=== PATIENT | male | born 1990 | race Caucasian/White ===

== ENCOUNTER 2018-10-21 22:11 | Emergency (ER) | payer OTHER, SELFPAY ==
[2018-10-21 22:12] VITALS: BP 126/79; PULSE 90; RESP 16; TEMP 37.1; O2SAT 96; BMI 24.3
[2018-10-21 22:41] VITALS: BP 132/98; PULSE 100; RESP 15; O2SAT 98
[2018-10-21] MEDS: 0.9% Normal Saline 1,000 ML 1000 ML IV (23:18)
[2018-10-21] MEDS: MethylPREDNISolone 125 MG/2 ML Vial IV (23:18)
[2018-10-21] MEDS: DiphenhydrAMINE 50 MG/ML Syringe IV (23:18)
--- NOTE | 2018-10-22 00:11 | ED.VISSUMM ---
- ER Visit Summary Date of Service: 10/22/18 Chief Complaint: Rash History of Present Illness: The patient is a 28 M with no primary care physician. He reports that he has hives that began yesterday. He reports the only changes are that he consistently changes laundry detergent. He also has new socks. He denies any change in soap, shampoo, or fabric softener. No new clothing, bedding, pets, or new medications in the past month. Patient does report that he had hives proximally 1 week ago took 1 dose of Benadryl and they resolved. He states that he returned again yesterday nights. States the only thing that he had done differently was that he was trimming bushes last night. They begin on his back and stomach and have now become diffuse. He was seen at urgent care and given a prescription for prednisone. He took 10 mg at 3 PM. He also took Benadryl 25 mg at 5:30 PM. Physical Examination: Vitals: Stable. Afebrile. General: Well-nourished and well-developed. Head: Normocephalic atraumatic. HEENT: No angioedema of the lips, tongue, oropharynx. Neck: Supple, no lymphadenopathy. No JVD. Nontender. Cardiovascular: Regular rate and rhythm. No murmurs. Respiratory: No respiratory distress. Clear to auscultation bilaterally. Abdominal: Soft, nontender, nondistended, normal bowel sounds. No guarding, rebound, or peritoneal signs. Back: Nontender. Extremities: Nontender, no edema. Skin: Urticarial lesions over his trunk with erythema to his extremities bilaterally. Neurologic: Alert and oriented ?3. Cranial nerves II through XII are intact. Normal strength and sensation. Psych: Normal affect. Emergency Department Course and Treatment: Patient had an IV placed. He was given Pepcid, Benadryl, and Solu-Medrol IV. On repeat exam the erythema is completely resolved. The urticaria greatly improved and he would like to go home. Treatment Plan: Patient will be discharged with [facility]. He does have his prednisone increased to 60 mg a day. Also given a prescription for Pepcid. Instructed to follow-up the [facility] in 1 to 2 days if not improving. Return to the emergency department for any worsening symptoms. Disposition: To home in improved and stable condition. Impression: 1. Allergic reaction, uncertain cause. This note was generated with [employer] dictation software. It may contain incorrect words, spelling, and punctuation that were not noted in review of the chart prior to signing ED Disposition - Plan for ED Patient: Disposition: Home or Assisted Living Instructions: ED Allergic Reaction General Other Prescriptions: Prednisone [Deltasone] 60 mg PO DAILY #15 tablet Cetirizine HCl [Zyrtec] 10 mg PO BID #20 capsule Famotidine [Pepcid] 20 mg PO BID #28 tablet Referrals: Madina Larry [NON-STAFF] - 1-2 Days if not improving
[2018-10-22 00:31] VITALS: BP 128/81; PULSE 74; RESP 17; O2SAT 96
== END 2018-10-22 00:33 | disposition home or self-care (01) ==
LOC: ED 23:13
PROVIDERS: Emergency Provider Emergency Medicine
DX: L50.0 Allergic urticaria (principal); F17.200 Nicotine dependence, unspecified, uncomplicated
CPT/HCPCS: 96361; 96374; 96375; 99284; J7030; A4216; J3490

== ENCOUNTER 2021-02-27 11:33 | Emergency (ER) | payer BC, SELFPAY ==
[2021-02-27 11:34] VITALS: BP 137/99; PULSE 97; RESP 18; TEMP 37.1; O2SAT 99; BMI 24.3
--- NOTE | 2021-02-27 12:09 | CT_ITS ---
INDICATION: Pain EXAMINATION: CT BRAIN - CT Head or Brain W/O Contrast Injection TECHNIQUE: Multiple axial images were obtained of the head without intravenous contrast. A radiation dose optimization technique was used for this scan. IV Contrast dosage and agent: None. COMPARISON: None. FINDINGS: BRAIN PARENCHYMA: No intra- or extra-axial hemorrhage. No evidence of acute infarct. No intracranial mass or mass effect. There is preservation of the diaz/white matter interface. Posterior fossa structures are unremarkable. Low-lying cerebellar tonsils but no evidence of herniation is seen. CSF SPACES: Appropriate for age. No hydrocephalus. Basal cisterns are patent. Extensive microvascular disease is visualized in the ethmoid air cells bilaterally, mucus retention cysts visualized in the right maxillary sinus, mild circumferential mucosal disease visualized in the maxillary, frontal and sphenoid sinuses. CALVARIUM, SKULL BASE, AND MASTOID AIR CELLS: Clear. No discrete lytic or blastic abnormalities. ORBITS: Both globes, extraocular muscles, optic nerves and retrobulbar fat appear unremarkable. CT/Brain/Head without Contrast IMPRESSION: No evidence of intracranial pathology is seen. Extensive mucosal disease visualized in the ethmoid air cells would recommend clinical correlation. Electronically Signed: Ronaldo Taylor MD at 12:56 EDT Tel , Service support ,
[2021-02-27] MEDS: DiphenhydrAMINE 50 MG/ML Syringe 25 MG IV (12:25)
[2021-02-27] MEDS: Metoclopramide 10 MG/2 ML Vial IV (12:25)
[2021-02-27] MEDS: 0.9% Normal Saline 1,000 ML 999 ML IV (12:26)
--- NOTE | 2021-02-27 13:07 | EX.ED.VIS.HA ---
HPI History of Present Illness Chief Complaint: Headache Informant: patient Onset/Context/Timing Onset: Days (3) Context: Gradual Timing: Continuous Quality -Headache: Positive for Sharp Location: Generalized Worsened by: Laying flat Relieved by: Nothing Associated Symptoms/Injury Associated Symptoms: Positive for Sinus Pressure; Negative for Fever, Nausea, Vomiting, Sore Throat, Numbness, Tingling, Preceding Aura, Visual Changes, Blurred Vision, Photophobia and Visual Loss Injury - LOPEZ: Negative for Direct Trauma Narrative Narrative: Patient presents with headache that has been getting worse over the past 3 days. States it is diffuse across his head. Patient describes the pain as sharp. Patient states the pain is worse whenever he lays flat. Patient admits to some sinus pressure. Patient denies any fevers or chills. Patient denies any nausea or vomiting. Patient denies any numbness or tingling. Patient denies any trauma or injury. [facility] Medical History GERD (gastroesophageal reflux disease) Home Medications ranitidine HCl [Zantac] 150 mg PO DAILY 10/21/18 [History Last Taken 10/21/18] cetirizine [Zyrtec] 10 mg PO BID #20 capsule 10/22/18 [Rx Last Taken Unknown] famotidine 20 mg PO BID #28 tablet 10/22/18 [Rx Last Taken Unknown] prednisone [Deltasone] 60 mg PO DAILY #15 tab 10/22/18 [Rx Last Taken Unknown] fluticasone propionate [Flonase Allergy Relief] 2 spray INTRANASAL DAILY #16 g 02/27/21 [Rx Last Taken Unknown] Allergy/AdvReac Type Severity Reaction Status Date / Time No Known Allergies Allergy Verified 02/27/21 11:35 no surgical history Social History Smoking Status: Current every day smoker tobacco type: cigarettes ROS ROS ED Constitutional Constitutional ED: Denies chills or fever(s) Eyes Eyes: Denies blurry vision or change in vision ENT ENT ED: Denies rhinorrhea or sore throat Cardiovascular Cardiovascular: Denies chest pain or palpitations Respiratory/Chest Respiratory/Chest: Denies cough or dyspnea Gastrointestinal Gastrointestinal: Denies nausea or vomiting Genitourinary Genitourinary ED: Denies dysuria or hematuria Musculoskeletal Musculoskeletal: Reports back pain; Denies neck pain Integumentary Denies abscess or rash Neurologic Neurologic: Denies headache(s) or weakness Allergic/Immunologic Allergic/Immunologic ED: Denies mouth swelling or urticaria EXAM Physical Exam Const Vital Signs: 02/27/21 11:34 02/27/21 14:23 Temperature 98.8 F Temperature Source Temporal Pulse Rate 97 93 Respiratory Rate 18 16 Blood Pressure 137/99 H 140/89 H Blood Pressure Mean 111 Pulse Ox 99 98 Oxygen Delivery Method Room Air Positive well nourished and well developed General Appearance ED: well developed HEENT Reports normocephalic and moist mucous membranes Neck supple and no JVD Resp normal respiratory effort and clear to auscultation bilaterally Cardio regular rate, regular rhythm and no murmurs GI normal to inspection, nondistended, normoactive bowel sounds and non-tender Palpation: soft Extremity normal to inspection General Extremety ED: Negative for edema or tenderness General Extremity: Negative for edema Neuro oriented x3, CN's II-XII intact bilaterally and no sensory deficits noted Sensorium / Orientation: awake and alert Motor Exam: strength 5/5 throughout Psych mental status grossly normal Skin no rashes or lesions noted MDM MDM MDM Narrative Medical decision making narrative: CT scan of the brain was obtained. There is ethmoid sinusitis noted. There is no acute intracranial abnormality. This was interpreted by the radiologist and reviewed by myself. Patient was given IV fluids, Reglan, and Benadryl. Patient states this improved his headache but it was still present. Patient was given a dose of Toradol. Patient was given a prescription for Flonase. Patient was instructed to follow-up with his primary care physician in 5 to 7 days. Patient understood and was agreeable with the plan. All questions were answered. Radiography Diagnostic Testing: Radiology Impression Brain CT 02/27/21 12:09 IMPRESSION: No evidence of intracranial pathology is seen. Extensive mucosal disease visualized in the ethmoid air cells would recommend clinical correlation. Electronically Signed: Ronaldo Taylor MD at 12:56 EDT Tel , Service support , Discharge Plan Triage Chief Complaint: Headache ED Provider: Schwiger,Mekhi Dx/Rx/DC Orders Clinical Impression: Acute ethmoidal sinusitis Instructions: ED Sinus Headache Prescriptions: New fluticasone propionate [Flonase Allergy Relief] 50 mcg/actuation spray,suspension 2 spray intranasal DAILY Qty: 16 RF: 0 No Action ranitidine HCl [Zantac Maximum Strength] 150 MG tablet 150 mg PO DAILY RF: 0 prednisone [Deltasone] 20 MG tablet 60 mg PO DAILY Qty: 15 RF: 0 famotidine 20 MG tablet 20 mg PO BID Qty: 28 RF: 0 cetirizine [Zyrtec] 10 MG capsule 10 mg PO BID Qty: 20 RF: 0 Primary Care Provider: Care Physician,No Primary Referrals: Angelique Gama MD [STAFF PHYSICIAN] - 5-7 Days Care Physician,No Primary [Primary Care Provider] - Disposition Disposition: Home, Self Care Discharge Date/Time: 02/27/21 14:25
[2021-02-27] MEDS: Ketorolac 30 MG/ML Syringe IV (14:19)
[2021-02-27 14:23] VITALS: BP 140/89; PULSE 93; RESP 16; O2SAT 98
== END 2021-02-27 14:25 | disposition home or self-care (01) ==
PROVIDERS: Emergency Provider Emergency Medicine
DX: J01.20 Acute ethmoidal sinusitis, unspecified (principal); K21.9 Gastro-esophageal reflux disease without esophagitis; F17.210 Nicotine dependence, cigarettes, uncomplicated; Z79.899 Other long term (current) drug therapy
CPT/HCPCS: 70450; 96361; 96374; 96375; 99283; J7030; A4216

== ENCOUNTER 2023-01-18 11:48 | Emergency (ER) | payer BC, SELFPAY ==
[2023-01-18 11:49] VITALS: BP 174/101; PULSE 105; RESP 18; TEMP 36.6; O2SAT 100
[2023-01-18 12:09] VITALS: BMI 22.3
--- NOTE | 2023-01-18 12:32 | ED.RN ---
PT TOLD SOUND RECORDIST DOG TRAFFIC COURT MAGISTRATE NAME, PARVIN HONG, AND DOG UNVAXXED
--- NOTE | 2023-01-18 12:41 | EX.ED.UPPERE ---
HPI History of Present Illness Chief Complaint: Bite Informant: patient Narrative Narrative: [id number] presents here dog bite to his right hand prior to arrival. Tetanus unknown. No anticoagulants. Denies any allergies. He reports saw this dog running on the road yesterday saw [employer] posting, saw the dog and today states try to help. Dog had a harness he tried to grab it bit him. He found out the corporate ethics officer called them states the dog does not have vaccinations. However is a home pet. Pain primary to his index finger. Tetanus Immunization: Unknown Prior similar symptoms: No PFSH PFSH Medical History GERD (gastroesophageal reflux disease) Medical History no medical history Home Medications cetirizine 10 mg capsule (Zyrtec) 10 mg PO BID ##20 10/22/18 [Rx Last Taken Unknown] amoxicillin 875 mg-potassium clavulanate 125 mg tablet 875 mg (0.875 x 875-125 mg) PO Q12H #14 TABLETS 01/18/23 [Rx Last Taken Unknown] famotidine 10 mg tablet 10 mg PO DAILY 01/18/23 [History Last Taken Unknown] hydrocodone-acetaminophen 5-325mg 5mg-325mg 1 tab PO Q6H PRN PRN Pain 3 days #10 TABLETS 01/18/23 [Rx Last Taken Unknown] ibuprofen 600 mg tablet 600 mg PO Q6H PRN PRN pain #20 TABLETS 01/18/23 [Rx Last Taken Unknown] Allergy/AdvReac Type Severity Reaction Status Date / Time No Known Allergies Allergy Verified 03/03/21 09:01 Family History no significant family his Surgical History no surgical history Social History Smoking Status: Current every day smoker tobacco type: cigarettes ROS ROS ED Constitutional Constitutional ED: Denies chills, fever(s) or sweats Eyes Eyes: Denies change in vision ENT ENT ED: Denies dysphagia or sore throat Cardiovascular Cardiovascular: Denies chest pain, leg edema, palpitations or racing heartbeat Respiratory/Chest Respiratory/Chest: Denies cough, dyspnea or dyspnea on exertion Gastrointestinal Gastrointestinal: Denies abdominal pain, diarrhea, nausea or vomiting Genitourinary Genitourinary ED: Denies dysuria, hematuria or urinary frequency Musculoskeletal Musculoskeletal: Reports extremity pain; Denies back pain or neck pain Integumentary Reports wounds; Denies rash Neurologic Neurologic: Denies headache(s), paresthesias or weakness EXAM Physical Exam Const Vital Signs: 01/18/23 11:49 Temperature 97.8 F Temperature Source Temporal Pulse Rate 105 H Respiratory Rate 18 Blood Pressure 174/101 H Blood Pressure Mean 125 Pulse Ox 100 Oxygen Delivery Method Room Air Positive well nourished and well developed General Appearance ED: well developed and NAD HEENT Reports moist mucous membranes normocephalic and atraumatic Eyes PERRL, EOMs intact bilaterally and conjunctivae normal General Eye ED: Yes normal appearance of both eyes Neck no lymphadenopathy and supple General: Negative for tenderness Chest Wall Chest: Negative for tenderness Resp normal respiratory effort and normal air movement Effort and Inspection: symmetric chest movement; Negative for respiratory distress Cardio regular rate, regular rhythm and no murmurs Peripheral Pulses: pulses 2+ throughout GI normal to inspection, nondistended, normoactive bowel sounds and non-tender Palpation: Negative for guarding or rebound tenderness present Back/Spine no CVA tenderness and no thoracic nor lumbar tenderness Extremity Extremity Narrative: Right upper extremity: Hand: There is tender palpation the middle phalanx of index finger. Dried blood to the digits. No active bleeding. Lacerations noted. Thumb, superficial laceration dorsal aspect proximal phalanx, is a puncture noted at the distal phalanx. There are is 1.5 cm laceration across the dorsal PIP joint, abrasion on the distal ulnar aspect along with the 30% subungual hematoma. Middle finger: Abrasion dorsal proximal phalanx, along with superficial laceration on the volar aspect of the middle phalanx. Ring finger with superficial laceration vertical across the dorsal aspect of the middle and distal phalanx. General Extremety ED: Negative for edema or tenderness General Extremity: Negative for edema Neuro oriented x3 and no sensory deficits noted Sensorium / Orientation: awake and alert Skin no rashes or lesions noted and no wounds MDM MDM MDM Narrative Medical decision making narrative: Interventions / MDM: Differential diagnosis: Dog bite, finger lacerations chest Diagnosis considered but do not suspect: Finger fracture however images are negative. My EKG interpretation: N/A Imaging independently reviewed and interpreted by myself: Right hand 3 views: No fracture noted no radiopaque foreign bodies. External documents reviewed: N/A Test considered but not ordered:N/A ED course: Patient tetanus updated Tennyson given for pain control. Augmentin started.. X-rays negative for fracture, patient's hand was soaked in Betadine water mix and cleansed. Thoroughly washed and evaluated myself. Subungual hematoma of the nail with tenderness, this was trephinated. Laceration of dorsal aspect of the proximal phalanx of the index finger, due to dog bite, there is no active bleeding, discussed will allow secondary healing. Dressings were placed by myself additional dressing supply sent home with the patient. Signs of infection discussed to monitor for. Prescription for pain medicines and antibiotics sent to his pharmacy. Outpatient follow-up. All questions were answered. Re-evaluation: stable Disposition discussed with patient/family/significant other: Patient Case discussed with consulting clinician: N/A This note was generated with [employer] dictation software. It may contain incorrect words, spelling, and punctuation that were not noted in checking the note before signing. Discharge Plan Triage Chief Complaint: Bite ED Provider: Haider Anders Dx/Rx/DC Orders Clinical Impression: Laceration of right hand without foreign body, Dog bite, Tetanus toxoid vaccination administered at current visit, Subungual hematoma of finger of right hand Instructions: Subungual Hematoma, ED Dog Bite, ED Laceration, Old: Not Sutured Prescriptions: New ibuprofen 600 mg tablet 600 mg PO Q6H PRN PRN (Reason: pain) Qty: 20 0RF amoxicillin-pot clavulanate [amoxicillin-pot clavulanate] 875-125 mg tablet 875 mg PO Q12H Qty: 14 0RF hydrocodone-acetaminophen [hydrocodone-acetaminophen] 5-325 mg tablet 1 tab PO Q6H PRN PRN (Reason: Pain) 3 Days Qty: 10 0RF No Action Zyrtec 10 MG capsule 10 mg PO BID Qty: 20 0RF Hold Instructions: seasonal allergies famotidine 10 mg tablet 10 mg PO DAILY Primary Care Provider: Care Physician,No Primary Referrals: Leah Chairez DO [Med Staff - Active Staff] - 1 Week Care Physician,No Primary [Primary Care Provider] - Activity Restrictions/Additional Instructions: No fractures on x-ray. Take and finish your antibiotics. Pain medicines as prescribed. Wound care as discussed. Follow-up as an outpatient. Return if worsening symptoms or signs of infection. Disposition Disposition: Home, Self Care
[2023-01-18] MEDS: Amox/Clavulanate 875 MG Tablet PO (12:49)
[2023-01-18] MEDS: Diphth,Pertuss(Acell),Tet Vac 0.5 ML Vial IM (12:49)
[2023-01-18] MEDS: HYDROcodone Bitartrate/Apap 5/325 Tablet PO (12:49)
--- NOTE | 2023-01-18 13:40 | RAD_ITS ---
STUDY: X-RAY - RIGHT HAND REASON FOR EXAM: Male, 32 years old. Dog bite TECHNIQUE: 3 view(s) of the hand. COMPARISON: None. FINDINGS: Normal radiocarpal articulation. Normal distal radioulnar joint. Normal visualized carpal bones. Normal carpal articulations Normal carpometacarpal articulation of the thumb. Normal second through fifth carpometacarpal joints. Normal metacarpi. Normal metacarpophalangeal joint of the thumb. Normal interphalangeal joint of the thumb. Normal proximal and distal phalanges of the thumb. Normal metacarpophalangeal joints of the second through fifth fingers. Normal proximal and distal interphalangeal joints of the second through fifth fingers. Normal phalanges of the second through fifth fingers. The soft tissue structures are unremarkable. RAD/Hand Min 3 Views IMPRESSION: Normal x-ray examination of the hand. Electronically Signed: Ector Cherry MD at 13:58 EDT ,
[2023-01-18 14:42] VITALS: RESP 16
== END 2023-01-18 14:43 | disposition home or self-care (01) ==
PROVIDERS: Emergency Provider Emergency Medicine; Visit Provider Emergency Medicine
DX: S60.571A Other superficial bite of hand of right hand, initial encounter (principal); F17.210 Nicotine dependence, cigarettes, uncomplicated; Z23 Encounter for immunization; S60.470A Other superficial bite of right index finger, initial encounter; W54.0XXA Bitten by dog, initial encounter
CPT/HCPCS: 73130; 90471; 90715; 99284

== ENCOUNTER 2023-05-17 14:41 | Emergency (ER) | payer BC, SELFPAY ==
[2023-05-17 14:42] VITALS: BP 165/109; PULSE 68; RESP 16; TEMP 37.2; O2SAT 98; BMI 22.9
--- NOTE | 2023-05-17 15:45 | ED.VIS.DENTA ---
HPI History of Present Illness Chief Complaint: Dental Informant: patient Onset/Context/Timing Onset: Yesterday Context: Gradual Onset Timing: Continuous Quality: Pressure, sharp at times Location: Left lower mandible Worsened by: Nothing Relieved by: - (Nothing) Associated Symptoms Assocated Symptom - Dental: jaw swelling and face swelling; Negative for fever, cold sensitivity or hot sensitivity Narrative Narrative: Patient presents with left lower dental pain that began yesterday. Patient states it is gradually getting worse. Patient states he noted increased swelling in his left lower jaw today. Patient describes the pain as pressure. Patient states it gets sharp at times. Patient states nothing makes it better and nothing makes it worse. Patient denies any fevers or chills. Patient denies any hot or cold sensitivity. Denies any difficulty breathing or difficulty swallowing. PFSH PFSH Medical History GERD (gastroesophageal reflux disease) Home Medications cetirizine 10 mg capsule (Zyrtec) 10 mg PO BID ##20 10/22/18 [Rx Last Taken Unknown] famotidine 10 mg tablet 10 mg PO DAILY 01/18/23 [History Last Taken Unknown] hydrocodone-acetaminophen 5-325mg 5mg-325mg 1 tab PO Q6H PRN PRN Pain 3 days #10 TABLETS 01/18/23 [Rx Last Taken Unknown] ibuprofen 600 mg tablet 600 mg PO Q6H PRN PRN pain #20 TABLETS 01/18/23 [Rx Last Taken Unknown] amoxicillin 875 mg-potassium clavulanate 125 mg tablet 875 mg (0.875 x 875-125 mg) PO Q12H #20 TABLETS 05/17/23 [Rx Last Taken Unknown] Allergy/AdvReac Type Severity Reaction Status Date / Time No Known Allergies Allergy Verified 05/17/23 14:44 Family History no significant family his Surgical History no surgical history no surgical history Social History Smoking Status: Current every day smoker tobacco type: cigarettes ROS ROS ED Constitutional Constitutional ED: Denies chills or fever(s) Eyes Eyes: Denies blurry vision or change in vision ENT ENT ED: Denies rhinorrhea or sore throat Cardiovascular Cardiovascular: Denies chest pain or palpitations Respiratory/Chest Respiratory/Chest: Denies cough or dyspnea Gastrointestinal Gastrointestinal: Denies nausea or vomiting Genitourinary Genitourinary ED: Denies dysuria or hematuria Musculoskeletal Musculoskeletal: Reports neck pain; Denies back pain Integumentary Denies abscess or rash Neurologic Neurologic: Reports headache(s); Denies weakness Allergic/Immunologic Allergic/Immunologic ED: Denies mouth swelling or urticaria EXAM Physical Exam Const Vital Signs: 05/17/23 14:42 Temperature 98.9 F Temperature Source Temporal Pulse Rate 68 Respiratory Rate 16 Blood Pressure 165/109 H Blood Pressure Mean 127 Pulse Ox 98 Oxygen Delivery Method Room Air Positive well nourished and well developed General Appearance ED: well developed and NAD HEENT Mouth ED: Yes oral and palatal mucosa normal, Yes lips normal and Yes tongue normal Mouth: oral and palatal mucosa normal, lips normal and tongue normal Teeth and Gingiva: caries, gingiva abnormal Positive for gingival edema and poor dentition Throat: posterior oropharynx normal Eyes PERRL and EOMs intact bilaterally Neck supple and no JVD General: Negative for anterior neck swelling, tenderness or submandibular swelling Resp normal respiratory effort and clear to auscultation bilaterally Cardio regular rate and regular rhythm Neuro oriented x3, CN's II-XII intact bilaterally, moves all extremities, no focal motor deficits and no sensory deficits noted Sensorium / Orientation: alert Motor Exam: strength 5/5 throughout Psych mental status grossly normal MDM MDM MDM Narrative Medical decision making narrative: Was advised he most likely has a dental abscess from infected dental caries. There is no fluctuance or abscess that is amenable to drainage. Patient was given a dose of Augmentin here. Patient is given a prescription for Augmentin. Patient was instructed to follow-up with a dentist in 5 to 7 days. Patient was instructed to return if worse in any way. Patient understood and was agreeable with the plan. All questions were answered. Discharge Plan Triage Chief Complaint: Dental ED Provider: Mekhi Fernandez Dx/Rx/DC Orders Clinical Impression: Infected dental caries, Dental abscess Instructions: ED Dental Cavity, ED Dental Abscess Prescriptions: Continued amoxicillin-pot clavulanate 875-125 mg tablet 875 mg PO Q12H Qty: 20 0RF No Action Zyrtec 10 MG capsule 10 mg PO BID Qty: 20 0RF Hold Instructions: seasonal allergies famotidine 10 mg tablet 10 mg PO DAILY ibuprofen 600 mg tablet 600 mg PO Q6H PRN PRN (Reason: pain) Qty: 20 0RF hydrocodone-acetaminophen [hydrocodone-acetaminophen] 5-325 mg tablet 1 tab PO Q6H PRN PRN (Reason: Pain) 3 Days Qty: 10 0RF Primary Care Provider: Care Physician,No Primary Referrals: Care Physician,No Primary [Primary Care Provider] - Dentist,Your [STAFF PHYSICIAN] - 3-5 Days Disposition Disposition: Home, Self Care
[2023-05-17] MEDS: Amox/Clavulanate 875 MG Tablet PO (16:25)
== END 2023-05-17 16:27 | disposition home or self-care (01) ==
PROVIDERS: Emergency Provider Emergency Medicine; Visit Provider Emergency Medicine
DX: K02.9 Dental caries, unspecified (principal); K04.7 Periapical abscess without sinus; F17.210 Nicotine dependence, cigarettes, uncomplicated; R51.9 Headache, unspecified; M54.2 Cervicalgia
CPT/HCPCS: 99282

== ENCOUNTER 2023-12-05 11:21 | Emergency (ER) | payer BC, SELFPAY ==
[2023-12-05 11:22] VITALS: BP 118/82; PULSE 78; RESP 16; TEMP 37.2; O2SAT 98; BMI 23.1
--- NOTE | 2023-12-05 11:44 | EX.ED.DYSGE1 ---
HPI <EMILY Milian - Last Filed: 12/05/23 12:37> History of Present Illness Chief Complaint: Rash Narrative Narrative: Patient presenting today due to a itchy rash to his forearms, abdomen, left side, and left upper thigh that he has had over the past few days after working in a flower bed a few days ago. He thinks he was working with hogweed but is not sure. He denies any fevers or chills. He has been taking Benadryl and applying Benadryl cream with minimal relief of his symptoms. He denies a PMH of any chronic health conditions. PFSH <EMILY Milian - Last Filed: 12/05/23 12:37> PFSH Medical History GERD (gastroesophageal reflux disease) Home Medications ?Medication ?Instructions ?Recorded ?Last Taken ?Type cetirizine 10 mg capsule (Zyrtec) 10 mg PO BID ##20 10/22/18 Unknown Rx famotidine 10 mg tablet 10 mg PO DAILY 01/18/23 Unknown History hydrocodone-acetaminophen 5-325mg 1 tab PO Q6H PRN PRN Pain 3 days 01/18/23 Unknown Rx 5mg-325mg #10 TABLETS ibuprofen 600 mg tablet 600 mg PO Q6H PRN PRN pain #20 01/18/23 Unknown Rx TABLETS amoxicillin 875 mg-potassium 875 mg PO Q12H #20 TABLETS 05/17/23 Unknown Rx clavulanate 125 mg tablet prednisone 10 mg tablet 10 mg PO DAILY #48 TABLETS 12/05/23 Unknown Rx Allergy/AdvReac Type Severity Reaction Status Date / Time No Known Allergies Allergy Verified 05/17/23 14:44 Social History Smoking Status: Current every day smoker tobacco type: cigarettes ROS <EMILY Milian - Last Filed: 12/05/23 12:37> ROS ED Constitutional Constitutional ED: Denies chills or fever(s) Cardiovascular Cardiovascular: Denies chest pain Respiratory/Chest Respiratory/Chest: Denies dyspnea Gastrointestinal Gastrointestinal: Denies abdominal pain, nausea or vomiting Integumentary Reports rash Neurologic Neurologic: Denies weakness Allergic/Immunologic Allergic/Immunologic ED: Denies lip swelling or mouth swelling EXAM <EMILY Milian - Last Filed: 12/05/23 12:37> Physical Exam Const Vital Signs: 12/05/23 11:22 Temperature 98.9 F Temperature Source Temporal Pulse Rate 78 Respiratory Rate 16 Blood Pressure 118/82 H Blood Pressure Mean 94 Pulse Ox 98 Oxygen Delivery Method Room Air Positive well nourished, well developed and no apparent distress General Appearance ED: well developed HEENT Reports normocephalic and head/scalp atraumatic HEENT Narrative: No angioedema Mouth ED: Yes moist mucous membranes normal Eyes PERRL and EOMs intact bilaterally Neck full ROM and supple Chest Wall inspection of chest normal Resp normal respiratory effort and clear to auscultation bilaterally Cardio regular rate and regular rhythm GI soft to palpation, non-tender, non-distended and no masses Back/Spine normal ROM and normal to inspection Extremity normal to inspection and full ROM Neuro oriented x3, CN's II-XII intact bilaterally, moves all extremities, no focal motor deficits and no sensory deficits noted Sensorium / Orientation: awake and alert Psych mental status grossly normal and thought process normal Skin Skin Narrative: Erythemic and blanching rash to the bilateral forearms and left side of torso and across the lower abdomen <Dr. Murphy Valente MD - Last Filed: 12/05/23 12:18> Physical Exam Const Vital Signs: 12/05/23 11:22 Temperature 98.9 F Temperature Source Temporal Pulse Rate 78 Respiratory Rate 16 Blood Pressure 118/82 H Blood Pressure Mean 94 Pulse Ox 98 Oxygen Delivery Method Room Air MDM <EMILY Milian - Last Filed: 12/05/23 12:37> [facility] Narrative Medical decision making narrative: Patient presenting today with a erythemic and blanching rash to his bilateral forearms, across his lower abdomen and left side and left groin and has had for the past few days after coming contact with weeds while gardening in a flower bed. He is well-appearing and in no acute distress. No signs of infection. He has been trying topical Benadryl cream and oral Benadryl with minimal relief. I will place him on a prednisone taper. I encouraged that he follow-up with his PCP and return instructions were given. He will be discharged home in stable condition. <Dr. Murphy Valente MD - Last Filed: 12/05/23 12:18> [facility] Treatment and Re-Evaluation Comments:: I have personally performed a face to face assessment of the patient and have reviewed the SAMY Note. I performed a substantive portion of the visit including all aspects of the following. My tobar findings include: History is Itchy hives in all areas that were contacted by estrella/wetanvir. No systemic symptoms. Exam is blanching erythema without linear distributions or vesicles or bullae or petechia. Multiple areas including forearms and abdominal wall. Medical Decison Making prednisone taper patient also advised to continue using Benadryl hydrocortisone cream topically as needed. Other additions or changes: [None] Discharge Plan Triage Chief Complaint: Rash ED Midlevel Provider: Lorri Cerrato ED Provider: Murphy Valente Dx/Rx/DC Orders Clinical Impression: Contact dermatitis Instructions: ED Contact Dermatitis Prescriptions: New prednisone 10 mg tablet 10 mg PO DAILY Qty: 48 0RF Rx Instructions: 6 po qd x 3 days, 4 po qd x 3 days, 2 po qd x 3 days, 1 po qd x 3 days No Action Zyrtec 10 MG capsule 10 mg PO BID Qty: 20 0RF famotidine 10 mg tablet 10 mg PO DAILY ibuprofen 600 mg tablet 600 mg PO Q6H PRN PRN (Reason: pain) Qty: 20 0RF hydrocodone-acetaminophen [hydrocodone-acetaminophen] 5-325 mg tablet 1 tab PO Q6H PRN PRN (Reason: Pain) 3 Days Qty: 10 0RF amoxicillin-pot clavulanate 875-125 mg tablet 875 mg PO Q12H Qty: 20 0RF Primary Care Provider: Care Physician,No Primary Referrals: Care Physician,No Primary [Primary Care Provider] - Activity Restrictions/Additional Instructions: Return for any worsening of your symptoms. Print Language: Frisian Disposition Disposition: Home, Self Care Discharge Date/Time: 12/05/23 12:29
== END 2023-12-05 12:29 | disposition home or self-care (01) ==
PROVIDERS: Emergency Provider Emergency Medicine; Visit Provider Emergency Medicine
DX: L25.9 Unspecified contact dermatitis, unspecified cause (principal); F17.210 Nicotine dependence, cigarettes, uncomplicated; K21.9 Gastro-esophageal reflux disease without esophagitis
CPT/HCPCS: 99282